=== PATIENT | male | born 2005 | race Caucasian/White ===

== ENCOUNTER → 2025-07-25 | Outpatient (CLI) | payer OTHER ==
[~2025-07-25] MED LIST: ACET80L; ONDA4 PO
[2025-07-27 00:10] LABS: HSV 1 GLYCOPROTEIN G AB, IGG 1.84 IV (<=0.89); HSV 2 GLYCOPROTEIN G AB, IGG 0.05 IV (<=0.89)
== END ==
LOC: LAB 07:50 → LAB SHORT 07:50
PROVIDERS: Physician Assistant
DX: B00.9 Herpesviral infection, unspecified (principal)
CPT/HCPCS: 86695; 86696